=== PATIENT | female | born 2000 | race Caucasian/White ===

== ENCOUNTER → 2020-05-28 11:12 | Outpatient (BNVA) | payer MEDICAID, SELFPAY | PROVIDERS: PCP Family Medicine; Referring Provider Family Medicine; Visit Provider Obstetrics & Gynecology | DX: Z30.09 Encounter for other general counseling and advice on contraception (principal); A60.00 Herpesviral infection of urogenital system, unspecified | CPT/HCPCS: 99213 ==

== ENCOUNTER → 2021-03-03 10:34 | Outpatient (BNVA) | payer MEDICAID, SELFPAY | PROVIDERS: Visit Provider Advanced Practice Midwife | DX: Z34.00 Encounter for supervision of normal first pregnancy, unspecified trimester (principal) | CPT/HCPCS: 81025; 99202 ==

== ENCOUNTER 2021-03-18 14:07 | Outpatient (REF) | payer MEDICAID, SELFPAY ==
[2021-03-18 16:31] LABS: Hematocrit 34.7 % (37-47); Hemoglobin 11.9 g/dl (12.0-16.0); Mean Corpuscular HGB Conc 34.3 g/dl (31.0-35.0); Mean Corpuscular Hemoglobin 28.7 pg (27.0-33.0); Mean Corpuscular Volume 83.6 fL (80-98); Platelet Count 268 X10*3/uL (160-400); Red Blood Count 4.15 X10*6/uL (4.20-5.50); Red Cell Distribution Width 11.9 % (11.0-16.0); White Blood Count 9.7 X10*3/uL (4.8-10.8)
[2021-03-18 17:10] LABS: Syphilis Screen Nonreactive (Nonreactive)
[2021-03-18 18:14] LABS: Amphetamine Screen Urine Not Detected (Not Detect); Barbiturates, Urine Not Detected (Not Detect); Benzodiazepines Screen Urine Not Detected (Not Detect); Cannabinoid Screen Urine Not Detected (Not Detect); Cocaine Screen Urine Not Detected (Not Detect); Opiate Screen Urine Not Detected (Not Detect); Phencyclidine Screen Urine Not Detected (Not Detect)
[2021-03-19 08:44] LABS: HBsAGNum1 0.14 S/CO (0.00-0.99); HIV AB/AG Nonreactive (Nonreactive); HIV Num 1 0.08 S/CO (0.00-0.99); Hepatitis B Surface Antigen Negative (Negative); ~HepC Num1 0.33 S/CO (0.00-0.79); ~Hepatitis C Antibody Nonreactive (Nonreactive)
[2021-03-19 17:02] LABS: Rubella IgG Antibody 2.86 Index
== END 2021-03-18 14:08 | disposition home or self-care (01) ==
LOC: HO.LAB 14:07
PROVIDERS: PCP Family Medicine; Visit Provider Advanced Practice Midwife
DX: O21.9 Vomiting of pregnancy, unspecified (principal); Z3A.09 9 weeks gestation of pregnancy
CPT/HCPCS: 80307; 85027; 86762; 86780; 86787; 86803; 86850; 86900; 86901; 87086; 87340; 87389; 99212

== ENCOUNTER 2021-04-03 11:22 | Outpatient (REF) | payer MEDICAID, SELFPAY ==
--- NOTE | ~2021-04-03 | US_ITS ---
EXAMINATION: OBSTETRICAL ULTRASOUND, FIRST TRIMESTER HISTORY: 20-year-old at the 12.0 weeks of gestation NT screening COMPARISON: None TECHNIQUE: Real time transabdominal imaging with color and M-mode Doppler. FINDINGS: A single, live IUP CRL of 51.9 mm c/w 12.0wks is noted. Heart Rate: 158 beats per minute. Normal yolk sac seen. NT was 1.1.mm. NB Present The embryo appears sonographically wnl for this GA. Ovaries were not visualized due to bowel gas. GESTATIONAL AGE: 1. Established GA: 12.0 wks 2. GA from [facility]: 12.0 wks ESTIMATED DATE OF DELIVERY: 1. Established KORY: 10/16/[address] [facility]: 10/16/2021 US/US OB 1T nuc measure IMPRESSION: 1. A single live IUP 2. Size equals dates 3. NT of 1.1 mm MFM Consultation: I reviewed the ultrasound findings along with significance of NT measurement. The NT of less than 3mm is generally reassuring. However, the sensitivity for T21 detection is only 60%. I reviewed the availability of serum aneuploidy screening which includes cell-free DNA and placental protein based tests. I discussed the sensitivity, false-positive rate, and other limitations associated with each test. I also reviewed the availability of invasive diagnostic tests that are associated small but definite risk of miscarriage. We also reviewed the differences between screening tests and diagnostic tests. After our discussion, she opted for the First trimester screening that is based on cell-free DNA or non-invasive testing (NIPT). She reports that her father was spent with the congenital heart defect that required surgery when he was 2 years of age and more recently in his 40s. She is unclear of the diagnosis. He is healthy and doing well. In general the incidence of congenital heart defect is approximately 1%. Given her family history, the risk to her fetus should not be increased above that of the general population. The survey between 18-20 weeks of gestation can identify greater than 90% of the major congenital heart defect. A follow up at 19 weeks for survey has been scheduled. Thank you very much for this referral. Total time 30 minutes. The time spent was devoted to counseling the patient about the disease and diagnosis, coordinating care including reviewing her records, pertinent lab data and studies, as well as discussing diagnostic evaluation and workup, plan therapeutic interventions and future disposition of care. This includes any additional research needed to obtain further information in formulating the plan of care of this patient. This note was generated with a voice recognition program. Please excuse any errors which may have been overlooked during my review of this note. Sometimes these errors may affect the content or meaning of a given sentence.
== END 2021-04-03 11:23 | disposition home or self-care (01) ==
LOC: HO.US 11:22
PROVIDERS: Visit Provider Advanced Practice Midwife
DX: Z36.82 Encounter for antenatal screening for nuchal translucency (principal)
CPT/HCPCS: 76813

== ENCOUNTER 2021-05-04 08:26 | Outpatient (REF) | payer MEDICAID, SELFPAY ==
[2021-05-04 14:03] LABS: CT PCR NOT DETECTED (Not Detect.); NG PCR NOT DETECTED (Not Detect.)
== END 2021-05-04 08:27 | disposition home or self-care (01) ==
LOC: HO.LAB 08:26
PROVIDERS: Visit Provider Advanced Practice Midwife
DX: Z34.92 Encounter for supervision of normal pregnancy, unspecified, second trimester (principal); Z3A.16 16 weeks gestation of pregnancy; Z20.2 Contact with and (suspected) exposure to infections with a predominantly sexual mode of transmission
CPT/HCPCS: 87491; 87591; 99212

== ENCOUNTER 2021-05-22 09:41 | Outpatient (REF) | payer MEDICAID, SELFPAY ==
--- NOTE | ~2021-05-22 | US_ITS ---
EXAMINATION: US OBSTETRICAL CLINICAL INFORMATION: 20-year-old at 19.2 weeks of gestation Screening for anomaly COMPARISON: 04/03/2021 TECHNIQUE: Real-time transabdominal ultrasound was performed using C1-5 megahertz transducer. FINDINGS: A single, active, fetus is seen in vertex presentation. The placenta is anterior without previa, and the amniotic fluid volume is wnl. MEASUREMENTS: 1. Biparietal Diameter: 4.3 cm; 19.1 wks 2. Occipital Frontal Diameter: 5.6 cm 3. Head Circumference: 16.0 cm; 18.6 wks 4. Abdominal Circumference: 13 point cm; 19.1 wks 5. Femur Length: 3.1 cm; 19.6 wks 6. Humerus Length: 2.94 cm; 19.4 wks 7. Tibia Length: 2.8 cm; 20.1 wks 8. Ulna Length: 2.6 cm; 19.3 wks 9. Lateral ventricle: 0.6 cm 10. Cerebellum: 1.9 cm; 19.5 wks 11. Cisterna Magna: 0.3 cm 12. Nuchal Fold: 3.3 mm 13. Heart Rate: 147 beats per minute Rt ovary: normal Lt ovary: normal Cervical length 3.8 cm on T/A. GESTATIONAL AGE: 1. Established GA: 19.0 wks 2. GA from [facility]: 19.2 wks ESTIMATED DATE OF DELIVERY: 1. Established KORY: 10/16/2021 2. KORY from [facility]: 10/14/2021 ANATOMY: The visualized anatomy includes but not limited to: 1. Cranium: Normal 2. Intracranial anatomy: cavum septum pellucidi, lateral ventricles, choroid plexus, cerebellum, posterior fossa, third and fourth ventricles. 3. face: orbits, lip/palate, profile, nasal bone 4. Heart: four-chamber view of the heart, ventricular septum, foramen ovale, pulmonary vein, left and right outflow tracts, three-vessel view, 3 vessel trachea view, aortic and ductal arches, situs.. 5. Diaphragm: Normal 6. Abdominal wall: Normal 7. Cord Insertion: Normal 8. Spine: Cervical, thoracic, lumbar, sacral. 9. Stomach: Normal size and shape 10. Right Kidney: Normal 11. Left Kidney: Normal 12. 3 vessel cord: Normal 13. Upper extremity: Open hands, fifth digit. 14. Lower extremity: Tibia, fibula, bilateral feet. 15. Bladder: Normal 16. Genitalia: Female, patient aware US/US OB /maternal detail IMPRESSION: 1. Single, living, intrauterine with appropriate biometry. 2. Normal survey DISCUSSION: I reviewed today's ultrasound findings. We discussed the limitations of ultrasound in diagnosing aneuploidy and other congenital abnormalities. I reviewed the differences between screening test and diagnostic test. Amniocentesis was discussed and declined. She was informed that the baseline incidence of congenital abnormalities is approximately 3-5%. Not all these conditions are diagnosable in utero. RECOMMENDATIONS: 1. Follow-up when necessary Thank you for allowing me to participate in her care. Total time 30 minutes. The time spent was devoted to counseling the patient about the disease and diagnosis, coordinating care including reviewing her records, pertinent lab data and studies, as well as discussing diagnostic evaluation and workup, plan therapeutic interventions and future disposition of care. This includes any additional research needed to obtain further information in formulating the plan of care of this patient. This note was generated with a voice recognition program. Please excuse any errors which may have been overlooked during my review of this note. Sometimes these errors may affect the content or meaning of a given sentence.
== END 2021-05-22 09:42 | disposition home or self-care (01) ==
LOC: HO.US 09:41
PROVIDERS: Visit Provider Advanced Practice Midwife
DX: Z34.92 Encounter for supervision of normal pregnancy, unspecified, second trimester (principal)
CPT/HCPCS: 76811

== ENCOUNTER → 2021-06-05 08:39 | Outpatient (BNVA) | payer MEDICAID, SELFPAY | PROVIDERS: Visit Provider Advanced Practice Midwife | DX: O99.012 Anemia complicating pregnancy, second trimester (principal); D64.9 Anemia, unspecified | CPT/HCPCS: 81003; 99212 ==

== ENCOUNTER → 2021-07-03 13:21 | Outpatient (BNVA) | payer MEDICAID, SELFPAY | PROVIDERS: Visit Provider Advanced Practice Midwife | DX: Z34.02 Encounter for supervision of normal first pregnancy, second trimester (principal); Z3A.25 25 weeks gestation of pregnancy | CPT/HCPCS: 81003; 99212 ==

== ENCOUNTER 2021-07-24 10:10 | Outpatient (REF) | payer MEDICAID, SELFPAY ==
[2021-07-24 12:54] LABS: MANUAL DIFF FLAG NO
[2021-07-24 14:01] LABS: Basophils Percent Auto 0.2 % (0-2); Eosinophils Absolute Auto 0.1 X10*3/uL (0.0-0.4); Eosinophils Percent Auto 0.4 % (0-4); Hematocrit 29.8 % (37.0-47.0); Hemoglobin 9.8 g/dl (12.0-16.0); Imm Gran Abs Auto 0.21 X10*3/uL (0.00-0.03); Imm Gran Pct Auto 1.8 % (0.0-0.4); Lymphocytes Absolute Auto 1.4 X10*3/uL (1.2-4.9); Mean Corpuscular HGB Conc 32.9 g/dl (31.0-35.0); Mean Corpuscular Hemoglobin 29.3 pg (27.0-33.0); Mean Platelet Volume 9.3 fL (9.4-12.3); Monocytes Absolute Auto 0.6 X10*3/uL (0.1-1.2); Monocytes Percent Auto 4.9 % (2-11); Neutrophils Absolute Auto 9.4 x10*3/uL (2.0-8.3); Neutrophils Percent Auto 80.7 % (45-73); Platelet Count 222 X10*3/uL (160-400); Red Blood Count 3.35 X10*6/uL (4.20-5.50); Red Cell Distribution Width 12.6 % (11.0-16.0); White Blood Count 11.6 X10*3/uL (4.8-10.8)
[2021-07-24 14:13] LABS: Glucose 1 Hour PP 50gm Dose 91 mg/dL (60-140)
[2021-07-24 14:33] LABS: Syphilis Screen Nonreactive (Nonreactive)
== END 2021-07-24 10:11 | disposition home or self-care (01) ==
LOC: HO.LAB 10:10
PROVIDERS: PCP Family Medicine; Visit Provider Advanced Practice Midwife
DX: Z34.92 Encounter for supervision of normal pregnancy, unspecified, second trimester (principal); Z23 Encounter for immunization; Z3A.28 28 weeks gestation of pregnancy; Z20.2 Contact with and (suspected) exposure to infections with a predominantly sexual mode of transmission
CPT/HCPCS: 36415; 85025; 86780; 90686; 99212

== ENCOUNTER → 2021-08-04 11:15 | Outpatient (BNVA) | payer MEDICAID, SELFPAY | PROVIDERS: Visit Provider Advanced Practice Midwife | DX: O26.893 Other specified pregnancy related conditions, third trimester (principal); R21 Rash and other nonspecific skin eruption; O36.5930 Maternal care for other known or suspected poor fetal growth, third trimester, not applicable or unspecified; Z3A.29 29 weeks gestation of pregnancy | CPT/HCPCS: 81003; 99212 ==

== ENCOUNTER 2021-08-14 08:37 | Outpatient (REF) | payer MEDICAID, SELFPAY ==
--- NOTE | ~2021-08-14 | US_ITS ---
EXAMINATION: OBSTETRICAL ULTRASOUND, Follow up HISTORY: A 20-year-old at 31.0 weeks of gestation Size date discrepancy COMPARISON: 05/22/2021 TECHNIQUE: Real time transabdominal imaging with color and M-mode Doppler. PRESENTATION: Vertex PLACENTA LOCATION: Anterior without previa AMNIOTIC FLUID: ROLLY 11.5 cm MEASUREMENTS: 1. Biparietal Diameter: 7.9 cm; 31.6 wks 2. Head Circumference: 28.9 cm; 31.6 wks 3. Abdominal Circumference: 28.5 cm; 32.4 wks 4. Femur Length: 5.97 cm; 31.1 wks 5. Heart Rate: 136 beats per minute WEIGHT: EFW: 19 00 grams (4 lbs 3 oz) -- 75 %. BIOPHYSICAL PROFILE: Motion: 2 Tone: 2 Breathin Amniotic Fluid: 2 Total score: 8/8 GESTATIONAL AGE: 1. Established GA: 31.0 wks 2. GA from [facility]: 31.6 wks ESTIMATED DATE OF DELIVERY: 1. Established KORY: 10/16/2021 2. KORY from [facility]: 10/10/2021 US/US OB follow up IMPRESSION: 1. A single active fetus is in vertex presentation 2. Size equals dates 3. Reassuring biophysical profile Thank you very much for this referral. This note was generated with a voice recognition program. Please excuse any errors which may have been overlooked during my review of this note. Sometimes these errors may affect the content or meaning of a given sentence.
== END 2021-08-14 08:38 | disposition home or self-care (01) ==
LOC: HO.US 08:37
PROVIDERS: PCP Family Medicine; Visit Provider Obstetrics & Gynecology
DX: O36.5930 Maternal care for other known or suspected poor fetal growth, third trimester, not applicable or unspecified (principal); O26.843 Uterine size-date discrepancy, third trimester; Z3A.31 31 weeks gestation of pregnancy
CPT/HCPCS: 76816

== ENCOUNTER 2021-08-24 11:25 | Outpatient (REF) | payer MEDICAID, SELFPAY ==
[2021-08-24 12:40] LABS: Hematocrit 28.6 % (37.0-47.0); Hemoglobin 9.4 g/dl (12.0-16.0); Mean Corpuscular HGB Conc 32.9 g/dl (31.0-35.0); Mean Corpuscular Hemoglobin 28.8 pg (27.0-33.0); Mean Corpuscular Volume 87.7 fL (80.0-98.0); Mean Platelet Volume 9.1 fL (9.4-12.3); Platelet Count 225 X10*3/uL (160-400); Red Blood Count 3.26 X10*6/uL (4.20-5.50); Red Cell Distribution Width 12.8 % (11.0-16.0); White Blood Count 12.6 X10*3/uL (4.8-10.8)
== END 2021-08-24 11:26 | disposition home or self-care (01) ==
LOC: HO.LAB 11:25
PROVIDERS: PCP Family Medicine; Visit Provider Advanced Practice Midwife
DX: Z23 Encounter for immunization (principal); O99.013 Anemia complicating pregnancy, third trimester; D64.9 Anemia, unspecified; Z3A.32 32 weeks gestation of pregnancy
CPT/HCPCS: 36415; 81003; 85027; 90471; 90715; 99212

== ENCOUNTER → 2021-09-10 15:46 | Outpatient (BNVA) | payer MEDICAID, SELFPAY | PROVIDERS: Visit Provider Obstetrics & Gynecology | DX: O98.313 Other infections with a predominantly sexual mode of transmission complicating pregnancy, third trimester (principal); A60.00 Herpesviral infection of urogenital system, unspecified; Z3A.34 34 weeks gestation of pregnancy | CPT/HCPCS: 81003; 99212 ==

== ENCOUNTER → 2021-09-16 10:53 | Outpatient (BNVA) | payer MEDICAID, SELFPAY | PROVIDERS: Visit Provider Advanced Practice Midwife | DX: O99.713 Diseases of the skin and subcutaneous tissue complicating pregnancy, third trimester (principal); L29.9 Pruritus, unspecified; O36.5930 Maternal care for other known or suspected poor fetal growth, third trimester, not applicable or unspecified; Z3A.35 35 weeks gestation of pregnancy | CPT/HCPCS: 81003; 99212 ==

== ENCOUNTER 2021-09-18 14:31 | Outpatient (REF) | payer MEDICAID, SELFPAY ==
--- NOTE | ~2021-09-18 | US_ITS ---
EXAMINATION: OBSTETRICAL ULTRASOUND, Follow up HISTORY: 20-year-old at that 36.0 weeks of gestation Size date discrepancy COMPARISON: 08/14/2021 TECHNIQUE: Real time transabdominal imaging with color and M-mode Doppler. PRESENTATION: Vertex PLACENTA LOCATION: Anterior without previa AMNIOTIC FLUID: ROLLY 11.1 cm MEASUREMENTS: 1. Biparietal Diameter: 8.8 cm; 35.5 wks 2. Head Circumference: 33.1 cm; 37.5 wks 3. Abdominal Circumference: 33.6 cm; 37.4 wks 4. Femur Length: 6.8 cm; 35.1 wks 5. Heart Rate: 155 beats per minute WEIGHT: EFW: 3000 grams (6 lbs 10 oz) -- 70 %. BIOPHYSICAL PROFILE: Motion: 2 Tone: 2 Breathin Amniotic Fluid: 2 Total score: 8/8 GESTATIONAL AGE: 1. Established GA: 36.0 wks 2. GA from [facility]: 36.2 wks ESTIMATED DATE OF DELIVERY: 1. Established KORY: 10/16/2021 2. KORY from [facility]: 10/14/2021 US/US OB follow up IMPRESSION: 1. A single active fetus is in vertex presentation 2. Size equals dates 3. Reassuring BPP and ROLLY Thank you very much for this referral. Total time 20 minutes. The time spent was devoted to counseling the patient about the disease and diagnosis, coordinating care including reviewing her records, pertinent lab data and studies, as well as discussing diagnostic evaluation and workup, plan therapeutic interventions and future disposition of care. This includes any additional research needed to obtain further information in formulating the plan of care of this patient. This note was generated with a voice recognition program. Please excuse any errors which may have been overlooked during my review of this note. Sometimes these errors may affect the content or meaning of a given sentence.
== END 2021-09-18 14:32 | disposition home or self-care (01) ==
LOC: HO.US 14:31
PROVIDERS: PCP Family Medicine; Visit Provider Advanced Practice Midwife
DX: O36.5930 Maternal care for other known or suspected poor fetal growth, third trimester, not applicable or unspecified (principal)
CPT/HCPCS: 76816

== ENCOUNTER 2021-09-21 11:08 | Outpatient (REF) | payer MEDICAID, SELFPAY ==
[2021-09-21 17:05] LABS: CT PCR NOT DETECTED (Not Detect.); NG PCR NOT DETECTED (Not Detect.)
[2021-09-22 09:04] LABS: BV Int Neg Control Negative (Negative); BV Int Pos Control Positive (Positive)
== END 2021-09-21 11:09 | disposition home or self-care (01) ==
LOC: HO.LAB 11:08
PROVIDERS: PCP Family Medicine; Visit Provider Advanced Practice Midwife
DX: Z34.93 Encounter for supervision of normal pregnancy, unspecified, third trimester (principal); Z3A.36 36 weeks gestation of pregnancy; Z20.2 Contact with and (suspected) exposure to infections with a predominantly sexual mode of transmission
CPT/HCPCS: 81003; 87081; 87480; 87491; 87510; 87591; 87660; 99212

== ENCOUNTER → 2021-10-02 15:06 | Outpatient (BNVA) | payer MEDICAID, SELFPAY | PROVIDERS: PCP Family Medicine; Visit Provider Advanced Practice Midwife | DX: O99.013 Anemia complicating pregnancy, third trimester (principal); D64.9 Anemia, unspecified; Z3A.38 38 weeks gestation of pregnancy | CPT/HCPCS: 81003; 99212 ==